=== PATIENT | male | born 1985 | race Caucasian/White ===

== ENCOUNTER 2019-04-23 09:33 | Emergency (ER) | payer MEDICAID ==
[2019-04-23] MEDS: OXYCODONE/ACETAMINOPHEN (5/325) TAB PO (10:44)
[2019-04-23] MEDS: KETOROLAC 60 MG INJ IM (10:44)
[2019-04-23 11:23] LABS: URIC ACID 7.3 mg/dl (3.1-7.9)
== END 2019-04-23 11:38 | disposition home or self-care (01) ==
LOC: FTE 11:38
DX: M10.9 Gout, unspecified (principal)
CPT/HCPCS: 73610; 73610-RT; 84560; 96372; 99284-25

== ENCOUNTER 2019-06-09 20:48 | Emergency (ER) | payer MEDICAID ==
[2019-06-09] MEDS: LIDOCAINE/MYLANTA 40 ML BTL PO (23:06)
[2019-06-09] MEDS: KETOROLAC 30 MG INJ IM (23:06)
== END 2019-06-09 23:38 | disposition home or self-care (01) ==
LOC: FTE 20:48
DX: M94.0 Chondrocostal junction syndrome [Tietze] (principal); E11.9 Type 2 diabetes mellitus without complications
CPT/HCPCS: 93005; 96372; 99284-25